=== PATIENT | male | born 1975 | race Caucasian/White ===

== ENCOUNTER 2019-03-23 16:25 | Observation (INO) ==
[2019-03-23] MEDS ORDERED: ONDANSETRON 4 MG/2 ML VIAL IV STA (16:33)
[2019-03-23] MEDS ORDERED: LACTATED RINGERS 1,000 ML IV ONE (16:35)
[2019-03-23] MEDS ORDERED: DICYCLOMINE 20 MG/2 ML AMP IM ONE (17:04)
[2019-03-23] MEDS ORDERED: METOCLOPRAMIDE 10 MG/2 ML VIAL IV STA (17:04)
[2019-03-23] MEDS ORDERED: PANTOPRAZOLE 40 MG VIAL IV STA (17:04)
[2019-03-23 17:14] LABS: Basophils % 0.2 % (0.0-0.8); Eosinophils # 0.2 10*3/uL (0.0-0.87); Eosinophils % 1.4 % (0.00-10.9); Hematocrit 52.9 VOL% (42.0-52.0); Hemoglobin 18.7 GM/DL (14.0-18.0); Immature Granulocytes % 0.3 %; Immature Granulocytes Absolute 0.05 #; Lymphocytes # 1.3 10*3/uL (1.4-4.0); Lymphocytes % 7.8 % (21.2-54.2); Mean Corpuscular HGB Conc 35.3 GM/DL (32-36); Mean Corpuscular Volume 87.1 FL (87-102); Mean Platelet Volume 8.9 FL (9.6-12.0); Monocytes % 4.3 % (1.7-12.7); Platelet Count 343 T/CUMM (130-400); Red Blood Count 6.07 MC/CUMM (3.8-5.5); Red Cell Distribution Width 12.4 % (9.3-17.3); White Blood Count 16.5 T/CUMM (4-12)
[2019-03-23 17:37] LABS: Albumin 4.4 G/DL (3.4-5.0); Bilirubin,Total 0.6 MG/DL (0.2-1.0); Calcium 10.1 MG/DL (8.5-10.1); Osmolality,Calculated 279.7 MOS/KG (273-304); Total Protein 8.9 G/DL (6.4-8.3)
[2019-03-23] MEDS ORDERED: CIPROFLOXACIN 500 MG TABLET PO STA (18:07)
[2019-03-23] MEDS ORDERED: metroNIDAZOLE INJ 500 MG in PREMIX 1 EACH IV STA (18:08)
[2019-03-23] MEDS ORDERED: ALUM/MAG/SIMETH/LIDO VISC 1:1 30 ML BOTTLE PO ONE (19:10)
[2019-03-23] MEDS ORDERED: ALUM/MAG/SIMETH/LIDO VISC 1:1 30 ML BOTTLE PO STA (19:10)
[2019-03-23] MEDS ORDERED: ACETAMINOPHEN 325 MG TABLET PO PRN (19:45)
[2019-03-23] MEDS ORDERED: MAGNESIUM SULF RIDER 4 GM in PREMIX 1 EACH IV PRN (19:45)
[2019-03-23] MEDS ORDERED: ONDANSETRON 4 MG/2 ML VIAL IV PRN (19:45)
[2019-03-23] MEDS ORDERED: MAGNESIUM SULF RIDER 2 GM in PREMIX 1 EACH IV PRN (19:45)
[2019-03-23] MEDS: SODIUM CHLORIDE 0.9% 1,000 ML IV SCH (21:44)
[2019-03-23] MEDS: metroNIDAZOLE INJ 500 MG in PREMIX 1 EACH IV SCH (23:56)
[2019-03-24] MEDS ORDERED: CIPROFLOXACIN INJ 400 MG in PREMIX 1 EACH IV SCH (04:00)
[2019-03-24 04:22] LABS: Basophils % 0.2 % (0.0-0.8); Eosinophils # 0.6 10*3/uL (0.0-0.87); Eosinophils % 4.5 % (0.00-10.9); Hematocrit 45.7 VOL% (42.0-52.0); Immature Granulocytes % 0.3 %; Immature Granulocytes Absolute 0.04 #; Lymphocytes # 2.6 10*3/uL (1.4-4.0); Lymphocytes % 20.3 % (21.2-54.2); Mean Corpuscular Volume 88.9 FL (87-102); Mean Platelet Volume 9.3 FL (9.6-12.0); Monocytes % 8.5 % (1.7-12.7); Neutrophils % 66.2 % (38.7-73.9); Platelet Count 290 T/CUMM (130-400); Red Blood Count 5.14 MC/CUMM (3.8-5.5); Red Cell Distribution Width 12.6 % (9.3-17.3); White Blood Count 12.5 T/CUMM (4-12)
[2019-03-24] MEDS: SODIUM CHLORIDE 0.9% 1,000 ML IV SCH (04:34)
[2019-03-24 04:44] LABS: Calcium 8.7 MG/DL (8.5-10.1); Osmolality,Calculated 287.8 MOS/KG (273-304)
[2019-03-24] MEDS: metroNIDAZOLE INJ 500 MG in PREMIX 1 EACH IV SCH (05:55)
[2019-03-24 08:10] VITALS: BP 136/85
[2019-03-24] MEDS ORDERED: PANTOPRAZOLE 40 MG VIAL IV SCH (09:00)
[2019-03-24] MEDS ORDERED: METOPROLOL SUCCINATE XL 25 MG TABLET PO SCH (09:00)
[2019-03-24] MEDS ORDERED: buPROPion XL 150 MG TABLET PO SCH (09:00)
[2019-03-24] MEDS ORDERED: ROSUVASTATIN 20 MG TABLET PO SCH (09:00)
== END 2019-03-24 12:15 | disposition home or self-care (01) ==
LOC: N.EDINP 16:25 → N.ED 16:25 → SUATTDRO 19:45 → N.2W 20:54
PROVIDERS: ADMIT Internal Medicine; ATTEND Internal Medicine Cardiovascular Disease

== ENCOUNTER 2021-11-25 12:13 | Observation (INO) ==
[2021-11-25] MEDS ORDERED: ASPIRIN 325 MG TABLET PO STA (12:47)
[2021-11-25] MEDS ORDERED: NITROGLYCERIN SL 0.4 MG TABLET SL PRN (12:47)
[2021-11-25 12:54] LABS: Basophils # 0.1 10*3/uL (0.0-0.2); Basophils % 0.5 % (0.0-0.8); Eosinophils # 0.4 10*3/uL (0.0-0.87); Eosinophils % 2.5 % (0.00-10.9); Hematocrit 51.6 VOL% (42.0-52.0); Hemoglobin 18.2 GM/DL (14.0-18.0); Immature Granulocytes % 0.3 %; Immature Granulocytes Absolute 0.05 #; Lymphocytes # 2.2 10*3/uL (1.4-4.0); Lymphocytes % 15.2 % (21.2-54.2); Mean Corpuscular HGB Conc 35.3 GM/DL (32-36); Mean Corpuscular Volume 87.5 FL (87-102); Mean Platelet Volume 9.1 FL (9.6-12.0); Monocytes # 0.6 10*3/uL (0.11-0.8); Monocytes % 4.3 % (1.7-12.7); Neutrophils % 77.2 % (38.7-73.9); Platelet Count 316 T/CUMM (130-400); Red Cell Distribution Width 12.5 % (9.3-17.3); White Blood Count 14.4 T/CUMM (4-12)
[2021-11-25] MEDS ORDERED: ONDANSETRON 4 MG/2 ML VIAL IV STA ×2 (12:57→14:14)
[2021-11-25 13:08] LABS: Albumin 4.3 G/DL (3.4-5.0); Bilirubin,Total 0.4 MG/DL (0.20-1.00); Calcium 10.8 MG/DL (8.5-10.1); Osmolality,Calculated 276.8 MOS/KG (273-304); Potassium 3.7 MMOL/L (3.5-5.1); Total Protein 9.3 G/DL (6.4-8.2)
[2021-11-25] MEDS ORDERED: SODIUM CHLORIDE 0.9% 1,000 ML IV STA (13:22)
[2021-11-25] MEDS ORDERED: MORPHINE 2 MG/1 ML SYRINGE IV STA (14:14)
[2021-11-25] MEDS ORDERED: ALUM/MAG/SIMETH/LIDO VISC 1:1 30 ML BOTTLE PO STA (14:38)
[2021-11-25] MEDS ORDERED: HYDROmorphone 1 MG/1 ML SYRINGE IV PRN (16:07)
[2021-11-25] MEDS ORDERED: ACETAMINOPHEN 325 MG TABLET PO PRN (16:07)
[2021-11-25] MEDS ORDERED: ONDANSETRON 4 MG/2 ML VIAL IV PRN (16:07)
[2021-11-25] MEDS: LACTATED RINGERS 1,000 ML IV SCH (16:40)
[2021-11-26] MEDS: LACTATED RINGERS 1,000 ML IV SCH ×2 (00:22→16:33)
[2021-11-26 05:33] LABS: Basophils % 0.4 % (0.0-0.8); Eosinophils # 0.4 10*3/uL (0.0-0.87); Eosinophils % 3.5 % (0.00-10.9); Hematocrit 43.7 VOL% (42.0-52.0); Hemoglobin 14.6 GM/DL (14.0-18.0); Immature Granulocytes % 0.3 %; Immature Granulocytes Absolute 0.03 #; Lymphocytes # 2.6 10*3/uL (1.4-4.0); Mean Corpuscular HGB Conc 33.4 GM/DL (32-36); Mean Corpuscular Volume 91.6 FL (87-102); Mean Platelet Volume 9.2 FL (9.6-12.0); Monocytes # 0.6 10*3/uL (0.11-0.8); Monocytes % 5.9 % (1.7-12.7); Neutrophils % 65.9 % (38.7-73.9); Platelet Count 246 T/CUMM (130-400); Red Blood Count 4.77 MC/CUMM (3.8-5.5); Red Cell Distribution Width 12.6 % (9.3-17.3); White Blood Count 10.9 T/CUMM (4-12)
[2021-11-26] MEDS: LOSARTAN 25 MG TABLET PO SCH (10:07)
[2021-11-26] MEDS: ROSUVASTATIN 20 MG TABLET PO SCH (10:07)
[2021-11-26] MEDS: METOPROLOL SUCCINATE XL 25 MG TABLET PO SCH (10:08)
[2021-11-26] MEDS: PANTOPRAZOLE 40 MG TABLET PO SCH (10:08)
[2021-11-26] MEDS: buPROPion XL 150 MG TABLET PO SCH (10:08)
[2021-11-26] MEDS ORDERED: ROCURONIUM 50 MG/5 ML VIAL IV ONE (10:23)
[2021-11-26] MEDS ORDERED: LIDOCAINE 2% 5 ML VIAL ONE (10:23)
[2021-11-26] MEDS ORDERED: ONDANSETRON 4 MG/2 ML VIAL ONE (10:23)
[2021-11-26] MEDS ORDERED: propofoL 200 MG/20 ML VIAL IV ONE (10:23)
[2021-11-26] MEDS ORDERED: DESFLURANE 1 UNIT/15 MINUTE INH ONE (10:23)
[2021-11-26] MEDS ORDERED: MIDAZOLAM 2 MG/2 ML VIAL ONE (10:23)
[2021-11-26] MEDS ORDERED: fentaNYL 100 MCG/2 ML VIAL ONE (10:23)
[2021-11-26] MEDS ORDERED: BUPIVACAINE MPF 0.5% 30 ML VIAL ONE (10:30)
[2021-11-26] MEDS ORDERED: LIDOCAINE 1% 5 ML VIAL ONE (10:30)
[2021-11-26] MEDS ORDERED: TISSUE ADHESIVE 1 EACH APPLICATOR TOP ONE (10:38)
[2021-11-26] MEDS ORDERED: GLYCOPYRROLATE 0.4 MG/2 ML VIAL ONE ×2 (11:20→11:49)
[2021-11-26] MEDS ORDERED: NEOSTIGMINE 10 MG/10 ML VIAL ONE (11:50)
[2021-11-26] MEDS ORDERED: PHENYLEPHRINE 1 MG/10 ML SYRINGE IV ONE (11:57)
[2021-11-26] MEDS ORDERED: HYDROmorphone 1 MG/1 ML SYRINGE ONE (12:31)
[2021-11-26] MEDS ORDERED: MEPERIDINE 25 MG/1 ML VIAL ONE (13:01)
[2021-11-26] MEDS: MEPERIDINE 25 MG/1 ML VIAL IV PRN ×2 (13:05→14:01)
[2021-11-26] MEDS: KETOROLAC 30 MG/1 ML VIAL IV PRN (21:04)
[2021-11-27] MEDS: LACTATED RINGERS 1,000 ML IV SCH ×2 (00:40→00:41)
[2021-11-27] MEDS: KETOROLAC 30 MG/1 ML VIAL IV PRN (04:26)
[2021-11-27 06:11] LABS: Basophils % 0.3 % (0.0-0.8); Eosinophils # 0.2 10*3/uL (0.0-0.87); Eosinophils % 1.9 % (0.00-10.9); Hematocrit 41.8 VOL% (42.0-52.0); Hemoglobin 14.1 GM/DL (14.0-18.0); Immature Granulocytes % 0.4 %; Immature Granulocytes Absolute 0.05 #; Lymphocytes # 1.6 10*3/uL (1.4-4.0); Lymphocytes % 13.6 % (21.2-54.2); Mean Corpuscular HGB Conc 33.7 GM/DL (32-36); Mean Corpuscular Volume 92.5 FL (87-102); Mean Platelet Volume 9.4 FL (9.6-12.0); Monocytes # 0.9 10*3/uL (0.11-0.8); Monocytes % 7.7 % (1.7-12.7); Neutrophils % 76.1 % (38.7-73.9); Platelet Count 232 T/CUMM (130-400); Red Blood Count 4.52 MC/CUMM (3.8-5.5); Red Cell Distribution Width 12.8 % (9.3-17.3); White Blood Count 12.1 T/CUMM (4-12)
[2021-11-27] MEDS: PANTOPRAZOLE 40 MG TABLET PO SCH (08:25)
[2021-11-27] MEDS: buPROPion XL 150 MG TABLET PO SCH (08:25)
[2021-11-27] MEDS: LOSARTAN 25 MG TABLET PO SCH (08:25)
[2021-11-27] MEDS: METOPROLOL SUCCINATE XL 25 MG TABLET PO SCH (08:25)
[2021-11-27] MEDS: ROSUVASTATIN 20 MG TABLET PO SCH (08:25)
[2021-11-27 11:24] VITALS: BP 143/88
== END 2021-11-27 13:52 | disposition home or self-care (01) ==
LOC: N.ED 12:13 → N.EDINP 12:13 → N.3E 18:08
PROVIDERS: ADMIT Surgery; ATTEND Surgery